=== PATIENT | female | born 1985 | race African-American/Black ===

== ENCOUNTER 2018-12-07 23:06 | Emergency (ER) | payer OTHER, MEDICAID ==
[~2018-12-07] VITALS: Ht 160 cm; Wt 68.0 kg
[2018-12-08 07:25] VITALS: BP 110/74
== END 2018-12-08 08:10 | disposition home or self-care (01) ==
LOC: EDBD 23:06 → ER 23:16
DX: Z20.2 Contact with and (suspected) exposure to infections with a predominantly sexual mode of transmission (principal); F15.10 Other stimulant abuse, uncomplicated; F17.210 Nicotine dependence, cigarettes, uncomplicated